=== PATIENT | female | born 1995 | race African-American/Black ===

== ENCOUNTER 2023-12-10 07:23 | Inpatient (IN) | payer OTHER ==
[2023-12-09 10:57] LABS: Hematocrit 32.3 % (34.9-44.5); Hemoglobin 11.2 g/dL (12.0-15.5); Mean Corpuscular HGB CONC 34.7 g/dL (32.0-36.0); Mean Corpuscular Hemoglobin 30.7 pg (27.0-33.0); Mean Corpuscular Volume 88.5 fl (81.6-98.3); Mean Platelet Volume 10.7 fl (7.4-10.4); Platelet Count 206 10x3/uL (150-450); RBC Distribution Width 13.8 % (11.5-14.5); Red Blood Cell (RBC) Count 3.65 10x6/uL (3.90-5.03); White Blood Cell (WBC) Count 6.9 10x3/uL (3.5-10.5)
[2023-12-09 11:35] LABS: HBsAg Index 0.21 S/CO (0-0.99); HIV (1/2) Antibody/Antigen Non-Reactive (NonReactive); HIV 1/2 INDEX 0.07 S/CO (<1.00); Hep B Surf Ag Non-Reactive S/CO (NonReactive)
[2023-12-09 11:36] LABS: Syphilis Antibody Nonreactive (Nonreactive); Syphilis Antibody Index 0.06 S/CO (<1.00 Non-Reactive)
[2023-12-10] MEDS ORDERED: Ondansetron PF 4 MG/2 ML Vial IVP PRN ×2 (07:25→08:29)
[2023-12-10] MEDS ORDERED: hydrALAZINE 20 MG/ML VIAL SLOW IVP PRN ×2 (07:25→10:52)
[2023-12-10] MEDS ORDERED: Famotidine/PF 20 mg/2ml Vial SLOW IVP PRN (07:25)
[2023-12-10] MEDS ORDERED: Promethazine HCl 25 MG/ML VIAL IM PRN ×2 (07:25→08:29)
[2023-12-10] MEDS ORDERED: Bicitra 30 ML UDCUP PO PRN (07:25)
[2023-12-10] MEDS ORDERED: Oxytocin 30 units/NS 500 ML 500 ML IV SCH ×2 (07:30→10:52)
[2023-12-10] MEDS ORDERED: Lactated Ringer's 1,000 ML IV SCH (07:30)
[2023-12-10] MEDS ORDERED: CEFAZOLIN 2 GM in Sodium Chloride 0.9% 100 ML IVPB SCH (07:30)
[2023-12-10] MEDS ORDERED: HYDROmorphone/PF 10 MG in Sodium Chloride 0.9% 99 ML IV PRN (08:29)
[2023-12-10] MEDS ORDERED: fentaNYL 50 mcg/mL 1 mL Vial SLOW IVP PRN (08:29)
[2023-12-10] MEDS ORDERED: diphenhydrAMINE 50 MG/ML VIAL IVP PRN (08:29)
[2023-12-10] MEDS ORDERED: Naloxone HCl 0.4 mg/ml Vial IV PRN (08:29)
[2023-12-10] MEDS ORDERED: diphenhydrAMINE 50 MG/ML VIAL IM PRN (08:29)
[2023-12-10] MEDS ORDERED: diphenhydrAMINE 25 MG CAP PO PRN ×2 (08:29→10:52)
[2023-12-10] MEDS ORDERED: Meperidine HCl/PF 25 MG (1 mL) VIAL SLOW IVP PRN (08:29)
[2023-12-10] MEDS ORDERED: Communication Order-Pharmacy FS PRN (08:30)
[2023-12-10] MEDS ORDERED: Ketorolac Tromethamine 30 MG (1 mL) VIAL IVP SCH (08:30)
[2023-12-10] MEDS: HYDROmorphone/PF 10 MG in Sodium Chloride 0.9% 49 ML IVPB PRN (09:27)
[2023-12-10] MEDS ORDERED: Lanolin Ointment 7 GM TUBE TOP PRN (10:52)
[2023-12-10] MEDS ORDERED: Bisacodyl 10 MG SUPP PR PRN (10:52)
[2023-12-10] MEDS: Sodium Chloride 0.9% 100 ML ONE (13:23)
[2023-12-10] MEDS: Dexmedetomidine 200 MCG/2 ML VIAL ONE (13:23)
[2023-12-10] MEDS: Carboprost 250 MCG/ML AMP ONE (13:23)
[2023-12-10] MEDS: Methylergonovine 0.2 MG/ML VIAL ONE (13:23)
[2023-12-10] MEDS: CEFAZOLIN 2 GM VIAL ONE (13:23)
[2023-12-10] MEDS: Midazolam HCl 2 mg/2 ml Vial ONE (13:24)
[2023-12-10] MEDS: Ondansetron PF 4 MG/2 ML Vial ONE (13:24)
[2023-12-10] MEDS: Fentanyl 250 MCG/5 ML VIAL ONE (13:24)
[2023-12-10] MEDS: Morphine PF 10 MG/10 ML VIAL ONE (13:24)
[2023-12-10] MEDS: Oxytocin 10 UNITS/ML VIAL ONE ×2 (13:24→13:25)
[2023-12-10] MEDS: PROPOFOL 20 ML ONE (13:24)
[2023-12-10] MEDS: PHENYLEPHRINE-NS 100 MCG/ML 10 ML SYRINGE ONE (13:24)
[2023-12-10] MEDS: Glycopyrrolate 0.2 MG/ML 5 ML SYRINGE ONE (13:25)
[2023-12-10] MEDS: Ferrous Sulfate 325 MG TAB PO SCH ×2 (13:26→23:43)
[2023-12-10] MEDS: Docusate 100 MG CAP PO SCH ×2 (13:26→21:01)
[2023-12-10 23:37] VITALS: BMI 40.1
[2023-12-10] MEDS: Ibuprofen 800 MG TAB PO SCH (23:43)
[2023-12-11 04:46] LABS: Hematocrit 28.3 % (34.9-44.5); Hemoglobin 9.6 g/dL (12.0-15.5); Mean Corpuscular HGB CONC 33.9 g/dL (32.0-36.0); Mean Corpuscular Hemoglobin 30.6 pg (27.0-33.0); Mean Corpuscular Volume 90.1 fl (81.6-98.3); Mean Platelet Volume 10.8 fl (7.4-10.4); Platelet Count 188 10x3/uL (150-450); RBC Distribution Width 13.8 % (11.5-14.5); Red Blood Cell (RBC) Count 3.14 10x6/uL (3.90-5.03); White Blood Cell (WBC) Count 9.3 10x3/uL (3.5-10.5)
[2023-12-11] MEDS: Boostrix 0.5 ML (Tdap) VIAL (>/=7 yrs of age) IM ONE (08:31)
[2023-12-11] MEDS: Prenatal Vitamin 1 TAB PO SCH (08:56)
[2023-12-11] MEDS: HYDROcodone/Acetaminophen 5/325 mg Tablet PO PRN (14:51)
[2023-12-12] MEDS: HYDROcodone/Acetaminophen 5/325 mg Tablet PO PRN (03:42)
[2023-12-12 08:23] VITALS: BP 111/59; TEMP 98.5
[2023-12-12] MEDS: Simethicone Chewable 80 MG TAB PO PRN (09:51)
== END 2023-12-12 16:55 | disposition home or self-care (01) | DRG 787 ==
LOC: CSHLD 07:23 → CSHPP 11:05
PROVIDERS: ADMIT Obstetrics & Gynecology; ATTEND Pediatrics Neonatal-Perinatal Medicine
PROC: 10D00Z1 Extraction of Products of Conception, Low, Open Approach (ICD-10-PCS; principal; 2023-12-10)
DX: O34.211 Maternal care for low transverse scar from previous cesarean delivery (principal); D62 Acute posthemorrhagic anemia; O99.344 Other mental disorders complicating childbirth; O99.02 Anemia complicating childbirth; Z3A.39 39 weeks gestation of pregnancy; Z37.0 Single live birth
CPT/HCPCS: 36415; 51702; 85027; 86780; 86850; 86900; 86901; 87340; 87389; J1170; J2250; J2274; J2405; J2590; J2704; J3010; J3490